=== PATIENT | male | born 1955 | race Two or more races ===

== ENCOUNTER 2024-02-07 20:44 | Emergency (ER) | payer OTHER ==
[~2024-02-07] VITALS: Ht 180.3 cm; Wt 89.4 kg
[2024-02-07] MEDS ORDERED: TOPROL XL100 M1 PO (21:14)
[2024-02-07] MEDS ORDERED: COZAAR100 MG PO (21:14)
[2024-02-07] MEDS ORDERED: PLAVIX75 MG PO (21:14)
[2024-02-07] MEDS ORDERED: ISOSORBIDE MONO60 MG PO (21:14)
[2024-02-07] MEDS ORDERED: NORVASC10 MG PO (21:14)
[2024-02-07] MEDS ORDERED: LIPITOR40 M1 PO (21:14)
[2024-02-07] MEDS ORDERED: ALLOPURINOL PO (21:15)
[2024-02-07] MEDS ORDERED: ROCALTROL0.25 MCG PO (21:15)
[2024-02-07] MEDS ORDERED: PANTOPRAZOLE SODIUM 40 MG in 0.9 % SODIUM CHLORIDE 8 ML IV PUSH STA (21:40)
[2024-02-07] MEDS ORDERED: 0.9 % SODIUM CHLORIDE 1,000 ML IV SCH (21:45)
[2024-02-07] MEDS ORDERED: DIATRIZOATE MEGLUMINE, SODIUM 30 ML BOTTLE PO ONE (21:45)
[2024-02-07 22:22] LABS: HEMATOCRIT 34.7 % (39.0-48.0); HEMOGLOBIN 11.7 g/dL (13-16.00); MEAN CELL VOLUME 96.1 fL (80.0-100.00); MEAN CORPUSCULAR HEMOGLOBIN 32.2 pg (27.00-32.0); MEAN CORPUSCULAR HGB CONC 33.6 g/dl (32.0-36.0); PLATELET COUNT 143 K/uL (150-450); RED BLOOD COUNT 3.61 M/uL (4.00-6.00); RED CELL DISTRIBUTION WIDTH 14.6 % (11.5-14.5)
[2024-02-07 22:46] LABS: ALBUMIN 3.2 gm/dL (3.4-5.0); BILIRUBIN TOTAL 0.45 mg/dL (0.3-1.2); CALCIUM 9.2 mg/dL (8.5-10.1); CREATININE SERUM 1.74 mg/dL (0.70-1.30); GFR 39.21; GLOBULINA 3.6 G/DL (2.4-3.5); POTASSIUM 4.26 mEq/L (3.5-5.1); TOTAL PROTEIN 6.8 gm/dL (6.4-8.2)
[2024-02-08 00:07] LABS: INR 0.98; PARTIAL THROMBOPLASTIN TIME 25.1 SECONDS (22.0-34.0); PROTHROMBIN TIME 10.7 SECONDS (9.0-11.5)
[2024-02-08 00:23] LABS: ob POSITIVE (NEGATIVE)
[2024-02-08] MEDS ORDERED: FAMOtidine 10 MG/ML (4ML VIAL) IV PUSH STA (02:51)
[2024-02-08 04:00] LABS: MEAN CELL VOLUME 96.2 fL (80.0-100.00); MEAN CORPUSCULAR HEMOGLOBIN 32.5 pg (27.00-32.0); MEAN CORPUSCULAR HGB CONC 33.8 g/dl (32.0-36.0); RED BLOOD COUNT 3.53 M/uL (4.00-6.00)
[2024-02-08 04:08] LABS: HEMOGLOBIN 11.5 g/dL (13-16.00); PLATELET COUNT 140 K/uL (150-450)
== END 2024-02-08 07:12 | disposition home or self-care (01) ==
LOC: ER 20:46
PROVIDERS: General Practice
DX: K92.1 Melena (principal)
CPT/HCPCS: 36415; 74177; 96365; 96366; 99284; J3490 ×2; J7030; Q9965